=== PATIENT | male | born 2000 | race American Indian/Alaskan Native ===

== ENCOUNTER 2020-08-06 20:37 | Emergency (ER) | payer SELFPAY ==
[2020-08-06 22:57] VITALS: BP 146/90
--- NOTE | 2020-08-07 00:06 | XRay Report ---
CHEST 2 VIEWS, 08/06/2020 10:55 PM INDICATION: Shortness of breath COMPARISON: None FINDINGS: Support devices: None. Heart: The cardiac silhouette is normal in size. Lungs/pleura: The lungs are clear of focal airspace disease or significant pleural effusion Additional findings: No significant acute abnormality. IMPRESSION: 1. No evidence of acute cardiopulmonary process. Signer Name: Zeina Clark MD Signed: 08/07/2020 12:02 AM Workstation Name: [id number]
== END 2020-08-07 03:12 | disposition left against medical advice (07) ==
LOC: ED 20:37
DX: R06.02 Shortness of breath (principal); Z53.21 Procedure and treatment not carried out due to patient leaving prior to being seen by health care provider
CPT/HCPCS: 71046